=== PATIENT | female | born 1955 ===

== ENCOUNTER 2017-11-15 10:55 | Emergency (ER) | payer MEDICARE, OTHER ==
[2017-11-15 10:56] VITALS: BMI 43.0
[2017-11-15 11:09] VITALS: RESP 16
--- NOTE | 2017-11-15 11:59 | ED PDOC ---
HPI: Back Time Seen by Provider: 11/15/17 11:58 Chief Complaint (Nursing): Back Pain Chief Complaint (Provider): BACK PAIN History Per: Patient (62 Y/O FEMALE H/O DM/HTN/ASTHMA HERE WITH RUQ ABD PAIN RADIATING TO BACK X 3 DAYS CONTINUOUS. PATIENT DENIES ANY WORSENING OF SYMPTOMS WITH POSITION CHANGES. NOTES NAUSEA ASSOCIATED WITH SYMPTOMS ATTEMPTED USE OF ADVIL YESTERDAY WITHOUT RELIEF.) Past Medical History Reviewed: Historical Data, Nursing Documentation, Vital Signs Vital Signs: Last Vital Signs Temp 98.5 F 11/15/17 11:06 Pulse 61 11/15/17 11:06 Resp 16 11/15/17 11:06 BP 141/70 11/15/17 11:06 Pulse Ox 99 11/15/17 11:06 - Medical History PMH: HTN, Hypercholesterolemia Denies: Chronic Kidney Disease - Family History Family History: States: No Known Family Hx - Home Medications Home Medications: Ambulatory Orders Medication Instructions Recorded Fexofenadine HCl [GelyNf] 180 mg PO DAILY 02/04/16 Fluticasone/Vilanterol [Breo 1 each IH PRN PRN 02/04/16 Ellipta 100-25 Mcg INH] Lisinopril [Zestril] 40 mg PO DAILY 02/04/16 Metformin HCl [Metformin HCl ER] 500 mg PO DAILY 02/04/16 Pravastatin Sodium [Pravachol] 40 mg PO DAILY 02/04/16 Ranitidine HCl [Ranitidine HCl] 300 mg PO DAILY 02/04/16 hydroCHLOROthiazide [Hydrodiuril] 25 mg PO DAILY 02/04/16 Naproxen 375 mg PO Q8 PRN #21 tablet 11/15/17 diaZEpam [Valium] 5 mg PO Q8 PRN #3 tab 11/15/17 - Allergies Allergies/Adverse Reactions: Allergies Allergy/AdvReac Type Severity Reaction Status Date / Time No Known Allergies Allergy Unverified 09/28/14 14:47 Review of Systems ROS Statement: Except As Marked, All Systems Reviewed And Found Negative Gastrointestinal: Positive for: Nausea, Abdominal Pain Physical Exam - Reviewed Nursing Documentation Reviewed: Yes Vital Signs Reviewed: Yes - Physical Exam Appears: Positive for: Well, Non-toxic, No Acute Distress Head Exam: Positive for: ATRAUMATIC, NORMAL INSPECTION, NORMOCEPHALIC Skin: Positive for: Normal Color, Warm, DRY Eye Exam: Positive for: EOMI, Normal appearance, PERRL ENT: Positive for: Normal ENT Inspection Neck: Positive for: Normal, Painless ROM Cardiovascular/Chest: Positive for: Regular Rate, Rhythm Respiratory: Positive for: CNT, Normal Breath Sounds Gastrointestinal/Abdominal: Positive for: Normal Exam, Soft, Tenderness (RUQ TENDERNESS/EPIGASTRIC TENDERNESS) Back: Positive for: Normal Inspection, Other Extremity: Positive for: Normal ROM Neurologic/Psych: Positive for: Alert, Oriented - Laboratory Results Result Diagrams: 11/15/17 12:20 11/15/17 12:20 - ECG O2 Sat by Pulse Oximetry: 99 - Progress ED Course And Treament: us abdomen: ruq IMPRESSION: No cholelithiasis or biliary dilatation. Diffuse increased echogenicity in the liver may reflect hepatic steatosis however parenchymal infectious/ inflammatory etiologies cannot be entirely excluded. Clinical and laboratory correlation is advised. toradol 15 mg iv x 1 dose Disposition - Clinical Impression Clinical Impression: Back strain - Patient ED Disposition Is Patient to be Admitted: No - Disposition Referrals: Noble Moss MD [Staff Provider] - [facility] [place] [Outside] Disposition: Routine/Home Disposition Time: 15:16 Condition: FAIR Prescriptions: diaZEpam [Valium] 5 mg PO Q8 PRN #3 tab PRN Reason: Muscle Spasm Naproxen 375 mg PO Q8 PRN #21 tablet PRN Reason: Pain, Moderate (4-7) Instructions: Low Back Pain (DC) Forms: [facility] ED School/Work Excuse Print Language: INDONESIAN
[2017-11-15 12:36] LABS: SQUAMOUS EPITHIAL < 1 /hpf (0-5); URINE BILIRUBIN NEGATIVE (NEGATIVE); URINE BLOOD NEGATIVE (NEGATIVE); URINE CLARITY CLEAR (Clear); URINE COLOR YELLOW (YELLOW); URINE GLUCOSE (UA) NEG (Normal); URINE LEUKOCYTE ESTERASE NEG Leu/uL (Negative); URINE PROTEIN NEGATIVE (NEGATIVE); URINE UROBILINOGEN 0.2-1.0 mg/dL (0.2-1.0)
[2017-11-15 12:37] LABS: BASO # 0.1 K/uL (0.0-0.2); BASO % 1.2 % (0.0-2.0); EOS # 0.3 K/uL (0.0-0.7); EOS % 6.1 % (0.0-4.0); HEMOGLOBIN 12.7 g/dL (12.0-16.0); LYMPH # 2.4 K/uL (1.0-4.3); LYMPH % 47.9 % (20.0-40.0); MEAN CORPUSCULAR HEMOGLOBIN 27.9 pg (27.0-31.0); MEAN CORPUSCULAR HGB CONC 32.8 g/dL (33.0-37.0); MEAN PLATELET VOLUME 10.5 fl (7.2-11.7); MONO # 0.3 K/uL (0.0-0.8); MONO % 6.4 % (0.0-10.0); NEUT % 38.4 % (50.0-75.0); NRBC % 0.1 % (0.0-0.0); RBC 4.56 Mil/uL (3.80-5.20); RED CELL DISTRIBUTION WIDTH 14.2 % (11.5-14.5); WHITE BLOOD COUNT 5.1 K/uL (4.8-10.8)
[2017-11-15 12:52] LABS: ALB/GLOB RATIO 1.3 (1.0-2.1); ALBUMIN 4.5 g/dL (3.5-5.0); ALT/SGPT 23 U/L (9-52); AST/SGOT 29 U/L (14-36); BLOOD UREA NITROGEN 11 mg/dl (7-17); CALCIUM 9.5 mg/dL (8.4-10.2); GFR AFRICAN-AMERICAN > 60; GFR NON-AFRICAN AMERICAN > 60; LIPASE 51 U/L (23-300)
--- NOTE | 2017-11-15 13:40 | US ---
Date of service: 11/15/2017 HISTORY: R/O CHOLECYSTITIS COMPARISON: None. TECHNIQUE: Grayscale imaging was performed. FINDINGS: LIVER: Measures 16.6 cm in length. There is diffuse increased echogenicity of the liver parenchyma. No mass. No intrahepatic bile duct dilatation. GALLBLADDER: There are no gallstones, wall thickening or pericholecystic fluid. The sonographic Baron's sign is negative. COMMON BILE DUCT: Measures 3.1 mm. No stones. No dilatation. PANCREAS: Unremarkable as visualized. No mass. No ductal dilatation. RIGHT KIDNEY: Measures 10.3 cm in length. Normal echogenicity. No calculus, mass, or hydronephrosis. AORTA: No aneurysmal dilatation. IVC: Unremarkable. OTHER FINDINGS: None . IMPRESSION: No cholelithiasis or biliary dilatation. Diffuse increased echogenicity in the liver may reflect hepatic steatosis however parenchymal infectious/ inflammatory etiologies cannot be entirely excluded. Clinical and laboratory correlation is advised.
[2017-11-15 15:24] VITALS: BP 125/80; PULSE 75; TEMP 97.9; O2SAT 100
== END 2017-11-15 15:24 | disposition home or self-care (01) ==
LOC: H.ER 10:55
DX: S39.012A Strain of muscle, fascia and tendon of lower back, initial encounter (principal); Y92.89 Other specified places as the place of occurrence of the external cause; E78.00 Pure hypercholesterolemia, unspecified; I10 Essential (primary) hypertension
CPT/HCPCS: 76705; 80053; 81003; 81025; 83690; 85025; 87086; 96374; 96375; 99283; J1885; J2405